=== PATIENT | male | born 1940 | race American Indian/Alaskan Native ===

== ENCOUNTER 2018-05-29 03:10 | Emergency (ER) | payer MEDICARE, OTHER ==
[~2018-05-29] VITALS: Ht 177.8 cm; Wt 78.0 kg
[~2018-05-29 03:10] MED LIST: ACET-929 PO; AMLO5TAB13; ASPI81CH43 PO; Atorvastatin Calcium PO; CYAN500T2 PO; HYDR12.56
[2018-05-29 03:23] VITALS: BP 169/112
[2018-05-29] MEDS ORDERED: KETOROLAC TROMETH 30 MG/ML 1ML VIAL IV ONE (05:45)
[2018-05-29] MEDS ORDERED: HYDROcodone-ACET 7.5/325MG TAB PO ONE (05:45)
== END 2018-05-29 06:50 | disposition home or self-care (01) ==
LOC: EDBD 03:10 → ER 03:13
DX: M54.16 Radiculopathy, lumbar region (principal); I10 Essential (primary) hypertension; Z79.82 Long term (current) use of aspirin; Z79.899 Other long term (current) drug therapy
CPT/HCPCS: 72131; 96374; 99284; J1885